=== PATIENT | female | born 1995 | race Caucasian/White ===

== ENCOUNTER 2017-02-25 19:34 | Emergency (ER) | payer OTHER ==
[~2017-02-25] VITALS: Ht 162.6 cm; Wt 87.8 kg
[2017-02-25 19:50] VITALS: Ht 162.6 cm; Wt 87.8 kg
[2017-02-25 21:28] LABS: microscopic required? YES; urine erythrocyte 3+ (NEGATIVE)
[2017-02-25 21:28] LABS: BASOPHIL % 0.8 % (0-2); PLATELET COUNT 316 x10^3mcL (130-400); RED CELL DISTRIBUTION WIDTH 13.4 % (11.5-14.5)
[2017-02-25 22:51] VITALS: BP 132/87
== END 2017-02-25 22:51 | disposition home or self-care (01) ==
LOC: ED 19:34
PROVIDERS: Emergency Medicine
DX: O03.9 Complete or unspecified spontaneous abortion without complication (principal); J45.909 Unspecified asthma, uncomplicated
CPT/HCPCS: 36415

== ENCOUNTER 2017-07-05 19:17 | Emergency (ER) | payer OTHER ==
[~2017-07-05] VITALS: Ht 167.6 cm; Wt 85.7 kg
[2017-07-05 19:33] VITALS: Ht 167.6 cm; Wt 85.7 kg
[2017-07-05 22:20] VITALS: BP 119/54
== END 2017-07-05 22:20 | disposition home or self-care (01) ==
LOC: ED 19:17
DX: H66.91 Otitis media, unspecified, right ear (principal); J45.909 Unspecified asthma, uncomplicated
CPT/HCPCS: Q0162

== ENCOUNTER 2017-09-29 16:46 | Emergency (ER) | payer OTHER ==
[~2017-09-29] VITALS: Ht 167.6 cm; Wt 86.2 kg
[2017-09-29 17:00] VITALS: Ht 167.6 cm; Wt 86.2 kg
[2017-09-29 19:41] VITALS: BP 116/74
== END 2017-09-29 19:41 | disposition home or self-care (01) ==
LOC: ED 16:46
DX: S16.1XXA Strain of muscle, fascia and tendon at neck level, initial encounter (principal); S39.012A Strain of muscle, fascia and tendon of lower back, initial encounter; J45.909 Unspecified asthma, uncomplicated; V89.2XXA Person injured in unspecified motor-vehicle accident, traffic, initial encounter; Y93.89 Activity, other specified; Y92.89 Other specified places as the place of occurrence of the external cause; Y99.8 Other external cause status
CPT/HCPCS: J1885; Q0162